=== PATIENT | male | born 2000 | race Caucasian/White ===

== ENCOUNTER 2022-01-31 13:14 | Emergency (ER) | payer OTHER ==
[~2022-01-31] VITALS: Ht 190.5 cm; Wt 79.4 kg
[2022-01-31] MEDS ORDERED: IV NORMAL SALINE 500 ML BAG IV ONE (14:00)
[2022-01-31] MEDS ORDERED: METOCLOPRAMIDE HCL 10 MG/2 ML VIAL IV ONE (14:00)
[2022-01-31] MEDS ORDERED: ONDANSETRON 4 MG/2 ML VIAL IV ONE (14:00)
[2022-01-31 14:20] LABS: MEAN CORPUSCULAR HEMOGLOBIN 31.2 uug (23.8-33.4); MEAN CORPUSCULAR VOLUME 92.7 fL (73.0-96.2); PLATELET COUNT (AUTO) 245 K/uL (152-348)
[2022-01-31] MEDS ORDERED: ONDANSETRON 4 MG/2 ML VIAL ONE (14:30)
[2022-01-31] MEDS ORDERED: METOCLOPRAMIDE HCL 10 MG/2 ML VIAL ONE (14:30)
[2022-01-31 14:38] LABS: POTASSIUM 4.2 mmol/L (3.5-5.1)
[2022-01-31 14:42] LABS: BILIRUBIN,DIRECT 0.2 mg/dL (0.0-0.2); BILIRUBIN,TOTAL 0.9 mg/dL (0.2-1.0); TOTAL PROTEIN, SERUM 7.5 g/dL (6.4-8.2)
[2022-01-31 16:19] VITALS: BP 126/71
== END 2022-01-31 15:15 | disposition home or self-care (01) ==
LOC: ER 13:14
DX: R51.9 Headache, unspecified (principal)
CPT/HCPCS: 99284; 96374; 70450; 96375; 80076; 80048; 83690; 85025; 85651; 36415; J2765; J2405; J7040; A4663